=== PATIENT | female | born 1950 ===

== ENCOUNTER → 2020-07-14 | Day surgery (SDC) | payer OTHER | END | disposition home or self-care (01) | LOC: ADM 07-07 13:45 → AMB-ENDOS 06:32 | PROVIDERS: ATTEND Colon & Rectal Surgery | DX: D12.2 Benign neoplasm of ascending colon (principal); K64.8 Other hemorrhoids; Z20.822 Contact with and (suspected) exposure to COVID-19 ==

== ENCOUNTER 2020-09-24 10:00 | Inpatient (IN) | payer OTHER ==
[2020-09-24] MEDS ORDERED: METFORMIN HCL500 M3 PO (13:53)
[2020-09-24] MEDS ORDERED: VASOTEC5 MG PO (13:54)
[2020-09-24] MEDS ORDERED: PAMELOR10 M1 PO (13:54)
[2020-09-24] MEDS ORDERED: PROTONIX40 MG PO (13:55)
[2020-09-24] MEDS ORDERED: ZOCOR20 MG PO (13:55)
[2020-09-24] MEDS ORDERED: ZANAFLEX4 MG PO (13:55)
[2020-09-24] MEDS ORDERED: PROZAC40 MG PO (13:56)
[2020-09-24] MEDS ORDERED: NAMENDA5 MG PO (13:56)
[2020-09-24] MEDS ORDERED: ESTAZOLAM2 MG PO (13:57)
[2020-09-24] MEDS ORDERED: CLONAZEPAM1 MG PO (13:57)
[2020-09-24] MEDS ORDERED: WELLBUTRIN XL300 MG PO (13:58)
[2020-09-24] MEDS ORDERED: NAPR500T14 PO (13:58)
[2020-09-24] MEDS ORDERED: NEURIN (13:58)
[2020-09-24] MEDS ORDERED: CLONAZEPAM2 MG PO (15:29)
[2020-10-01] MEDS ORDERED: HYDROCHLOROTH12.5 MG (10:29)
[2020-10-01] MEDS ORDERED: OMEPRAZOLE20 MG (10:29)
[2020-10-01] MEDS ORDERED: HYDROXYCHLOROQ200 MG (10:29)
[2020-10-01] MEDS ORDERED: DICLOFENAC SOD100 GM (10:30)
[2020-10-01] MEDS ORDERED: DICLOFENAC POTA50 MG (10:30)
[2020-10-01] MEDS ORDERED: ABANEU-SL TABL1 EACH (10:30)
[2020-10-01] MEDS ORDERED: GRALISE600 MG (10:31)
== END 2020-10-06 13:52 | disposition home or self-care (01) | DRG 331 ==
LOC: SURH 10-01 05:50 → O/R 10-01 05:50 → SURH 10-01 07:00
PROVIDERS: ADMIT Colon & Rectal Surgery; ATTEND Colon & Rectal Surgery
PROC: 2Y41X5Z Packing of Nasal Region using Packing Material (ICD-10-PCS; 2020-10-01)
PROC: 0DTF0ZZ Resection of Right Large Intestine, Open Approach (ICD-10-PCS; principal; 2020-10-01 07:00)
PROC: BW210ZZ Computerized Tomography (CT Scan) of Abdomen and Pelvis using High Osmolar Contrast (ICD-10-PCS; 2020-10-06)
DX: K63.5 Polyp of colon (principal); E11.9 Type 2 diabetes mellitus without complications